=== PATIENT | female | born 1985 | race Caucasian/White ===

== ENCOUNTER 2024-03-11 17:24 | Emergency (ER) | payer BC ==
--- NOTE | 2024-03-11 17:37 | ERPHSYRPT ---
- History of Present Illness Time Seen by Provider: 03/11/24 17:37 Source: patient Exam Limitations: no limitations Physician History: This is a 39-year-old white female patient who presented to the emergency department by private vehicle and who is a patient of nurse practitioner Esequiel and pain specialist Dr. Garcia and presents with left shoulder pain after being injured. The shoulder was injured when the top portion of a tanning bed hit her in the posterior left shoulder region. It did not hit her head. It did not hit her neck although she feels some pain in the left shoulder and up into the base of her neck. She did not lose consciousness. She has a history of hypertension. She denies chest pain. She has no abdominal pain. She is not short of breath. Occurred: this afternoon Quality: aching Severity of Pain-Max: mild Severity of Pain-Current: mild Extremities Pain Location: shoulder: left (Posterior) Modifying Factors: Improves With: movement (Mildly worsens pain) Associated Symptoms: none Allergies/Adverse Reactions: No Known Drug Allergies Allergy (Verified 03/11/24 17:31) Home Medications: Metoprolol Succinate 25 mg Xl* [Toprol-Xl 25MG Tablets] 25 mg PO DAILY 03/11/24 [History] Ropinirole 2Mg [Requip 2Mg Tab] 2 mg PO HS 03/11/24 [History] Trazodone HCl 50 mg [Desyrel 50 mg] 50 mg PO HS 03/11/24 [History] Hx Tetanus, Diphtheria Vaccination/Date Given: No Hx Influenza Vaccination/Date Given: No Hx Pneumococcal Vaccination/Date Given: No Travel Risk - International Travel Have you traveled outside of the country in past 3 weeks: No - Emerging Infectious Disease Are you exhibiting symptoms associated with any current EIDs: No - Vaccine Status Hx Covid Vaccintation/Booster/Date Given: No - Review of Systems Constitutional: No Symptoms Eyes: No Symptoms Ears, Nose, & Throat: No Symptoms Respiratory: No Symptoms Cardiac: No Symptoms Abdominal/Gastrointestinal: No Symptoms Genitourinary Symptoms: No Symptoms Musculoskeletal: Injury (Left shoulder) Skin: No Symptoms Neurological: No Symptoms Psychological: No Symptoms Endocrine: No Symptoms Hematologic/Lymphatic: No Symptoms Immunological/Allergic: No Symptoms All Other Systems: Reviewed and Negative - Past Medical History Pertinent Past Medical History: Yes Neurological History: No Pertinent History ENT History: No Pertinent History Cardiac History: No Pertinent History Respiratory History: No Pertinent History Endocrine Medical History: No Pertinent History Musculoskeletal History: No Pertinent History GI Medical History: Gallbladder Disease History: No Pertinent History Psycho-Social History: No Pertinent History Female Reproductive Disorders: Menstrual Problems - Past Surgical History Past Surgical History: Yes Neuro Surgical History: No Pertinent History Cardiac: No Pertinent History Respiratory: No Pertinent History Gastrointestinal: No Pertinent History Genitourinary: No Pertinent History Musculoskeletal: No Pertinent History Female Surgical History: No Pertinent History Other Surgical History: T&A - Social History Smoking Status: Current every day smoker How long have you smoked: yrs Exposure to second hand smoke: Yes Drug Use: none Patient Lives Alone: No - Nursing Vital Signs Nursing Vital Signs: Initial Vital Signs Temperature 98.6 F 03/11/24 17:25 Pulse Rate 84 03/11/24 17:25 Respiratory Rate 17 03/11/24 17:25 Blood Pressure 151/108 03/11/24 17:25 O2 Sat by Pulse Oximetry 100 03/11/24 17:25 Pain Scale Pain Intensity 6 - Physical Exam General Appearance: no apparent distress, alert Eyes, Ears, Nose, Throat Exam: normal ENT inspection, moist mucous membranes Neck Exam: normal inspection, non-tender, supple, full range of motion Cardiovascular/Respiratory Exam: chest non-tender, no respiratory distress Abdominal Exam: non-tender Back Exam: normal inspection, normal range of motion, No CVA tenderness, No vertebral tenderness Shoulder Exam: normal inspection, no evidence of injury, normal ROM, soft tissue tenderness (Posterior shoulder on the left) Elbow/Forearm Exam: normal inspection, non-tender, no evidence of injury, normal ROM Wrist Exam: normal inspection, non-tender, no evidence of injury, normal ROM Hand Exam: normal inspection, non-tender, no evidence of injury, normal ROM Neuro/Tendon Exam: normal sensation, normal motor functions, normal tendon functions, responds to pain, no evidence tendon injury Mental Status Exam: alert, oriented x 3, cooperative Skin Exam: normal color, warm, dry SpO2 Interpretation: normal O2 Delivery: Room Air - Course Nursing assessment & vital signs reviewed: Yes Ordered Tests: Active Orders 24 hr Category Date Time Status SHOULDER Stat Exams 03/11/24 17:41 Taken - Progress Progress: unchanged Progress Note: 03/11/24 18:02 My medical decision making and the assignment of low complexity to this patient's medical issue today is based on review of the patient's past medical history, review of the patient's medication list, review of the patient drug allergy list, history present illness and physical findings on examination. The workup in this patient includes x-ray of the left shoulder. Differential diagnosis includes and not limited to contusion of the posterior left shoulder, fracture of the left shoulder, dislocation of the left shoulder 03/11/24 18:45 I interpreted the patient's preliminary left shoulder x-ray report. There is no evidence of any acute fracture or dislocation. Counseled pt/family regarding: diagnosis, need for follow-up, rad results Medical Desision Making - Diagnostic Testing Diagnostic test were ordered, analyzed, and reviewed by me: Yes Radiological Interpretation: Interpreted by me - Risk of complications The pt has a mod risk of morbidity or mortality based on: Need for prescription drug management - Departure Departure Disposition: Home Clinical Impression: Contusion of left shoulder Condition: Stable Critical Care Time: No Referrals: ZAK PHILIPPE NP [Primary Care Provider] - Follow up/PCP as directed Additional Instructions: Ice pack to tender area 3 times a day for the next 48 hours. Add Tylenol and ibuprofen to the muscle relaxant you received today. Take your other medications as prescribed. Call your primary care provider tomorrow, 03/12/2024 to make arranges for follow-up appointment to be seen in the next 5 to 7 days. Make sure that you do not take your trazodone within 2 to 3 hours of the muscle relaxant. Prescriptions: Orphenadrine Citrate 100 mg [Norflex 100 MG Tablet] 100 mg PO BID #10 tab
[2024-03-11 17:41] VITALS: BP 151/108; PULSE 84; RESP 17; TEMP 98.6; O2SAT 100
--- NOTE | 2024-03-12 08:39 | XRAY ---
Indication: Pain following injury. Comparison: December 05, 2022 3 view left shoulder again demonstrates mild AC degenerative changes and minimal degenerative changes visualized thoracic spine. No new/acute bony, articular, or soft tissue abnormalities.
== END 2024-03-11 18:55 | disposition home or self-care (01) ==
LOC: ED 17:24
DX: S40.012A Contusion of left shoulder, initial encounter (principal); W20.8XXA Other cause of strike by thrown, projected or falling object, initial encounter; I10 Essential (primary) hypertension; Z79.899 Other long term (current) drug therapy; Z72.0 Tobacco use
CPT/HCPCS: 73030; 99282

== ENCOUNTER 2024-03-31 17:24 | Emergency (ER) | payer BC ==
--- NOTE | 2024-03-31 20:03 | ERPHSYRPT ---
- History of Present Illness Time Seen by Provider: 03/31/24 19:00 Source: patient Exam Limitations: no limitations Patient Subjective Stated Complaint: Hypertension; hx of stroke last January Triage Nursing Assessment: + Physician History: The patient, with a history of stroke last year due to a clot in a major artery in the neck, presented with episodes of numbness and limpness in the left side of the body. The first episode occurred at home, with the numbness resolving spontaneously. The patient's blood pressure was monitored by her spouse during this episode and was reported to be within normal limits. The second episode occurred at work, where the patient's blood pressure was recorded as 130/107. Following this episode, the patient went home, rested, and subsequently contacted her primary care physician who advised her to present to the ER for evaluation. The patient also reported a recent bereavement, with her mother passing away within the last week. She expressed uncertainty about whether these episodes could be related to anxiety or represent transient ischemic attacks. The patient reported no current symptoms at the time of the consultation. She is on clopidogrel and aspirin as blood thinners following the stroke. She reported no new symptoms since the stroke until these recent episodes. The patient also reported constant dizziness since the stroke. The patient expressed a preference to wait for further imaging and to follow up with her neurologist, despite acknowledging the difficulty in reaching her neurologist. She also planned to contact her primary care physician the following day. The patient expressed a desire to avoid hospital admission and to ensure there was no immediate serious concern. Timing/Duration: today Severity: moderate Character of Deficits: altered sensation, LUE Deficits: no difficulties Baseline/Normal Cognition: alert oriented x 3 Current Cognition: alert oriented x 3 Associated Symptoms: slurred speech, headache, No confusion, No loss of consciousness, No nausea, No vomiting, No weakness, No insomnia, No numbness/tingling in legs/feet, No vision changes Allergies/Adverse Reactions: No Known Drug Allergies Allergy (Verified 03/31/24 17:29) Home Medications: Metoprolol Succinate 25 mg Xl* [Toprol-Xl 25MG Tablets] 25 mg PO DAILY 03/11/24 [History] Ropinirole 2Mg [Requip 2Mg Tab] 2 mg PO HS 03/11/24 [History] Trazodone HCl 50 mg [Desyrel 50 mg] 50 mg PO HS PRN 03/11/24 [History] Aspirin 81 gm Chew [Baby Aspirin 81 mg Chew] 81 mg PO DAILY 03/31/24 [History] Clopidogrel Bisulfate [Clopidogrel] 75 mg PO DAILY 03/31/24 [History] Fenofibrate 160 mg PO DAILY 03/31/24 [History] Orphenadrine Citrate 100 mg [Norflex 100 MG Tablet] 100 mg PO HS 03/31/24 [History] Hx Tetanus, Diphtheria Vaccination/Date Given: Yes Hx Influenza Vaccination/Date Given: No Hx Pneumococcal Vaccination/Date Given: No Travel Risk - International Travel Have you traveled outside of the country in past 3 weeks: No - Emerging Infectious Disease Are you exhibiting symptoms associated with any current EIDs: No - Review of Systems All Other Systems: Reviewed and Negative - Past Medical History Pertinent Past Medical History: Yes Neurological History: Stroke ENT History: No Pertinent History Cardiac History: No Pertinent History Respiratory History: No Pertinent History Endocrine Medical History: No Pertinent History Musculoskeletal History: No Pertinent History GI Medical History: Gallbladder Disease History: No Pertinent History Psycho-Social History: No Pertinent History Female Reproductive Disorders: Menstrual Problems Other Medical History: prediabetic, stroke in January 2023 - Past Surgical History Past Surgical History: Yes Neuro Surgical History: No Pertinent History Cardiac: No Pertinent History Respiratory: No Pertinent History Gastrointestinal: Cholecystectomy Genitourinary: No Pertinent History Musculoskeletal: No Pertinent History Female Surgical History: No Pertinent History Other Surgical History: T&A - Female History Hx Last Menstrual Period: 2 years Hx Now: No - Social History Smoking Status: Former smoker How long have you smoked: yrs Exposure to second hand smoke: No Drug Use: none Patient Lives Alone: No - Social Determinants of Health Will the patient participate in the screening: Declined to provide - Nursing Vital Signs Nursing Vital Signs: Initial Vital Signs Pulse Rate 82 03/31/24 18:49 Respiratory Rate 14 03/31/24 18:49 Blood Pressure 109/69 03/31/24 18:49 O2 Sat by Pulse Oximetry 97 03/31/24 18:49 Pain Scale Pain Intensity 0 - [place] Coma Scale Best Eye Response ([place]): (4) open spontaneously Best Verbal Response ([place]): (5) oriented Best Motor Response ([place]): (6) obeys commands [place] Total: 15 - Physical Exam General Appearance: no apparent distress Eye Exam: bilateral eye: normal inspection, PERRL, EOMI Ears, Nose, Throat Exam: normal ENT inspection, pharynx normal, TM abnormal (L) Neck Exam: supple, full range of motion Respiratory: airway intact, No respiratory distress Cardiovascular: capillary refill <2 sec, No edema Mental Status: alert, oriented x 3, 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 Exam: normal hearing, normal speech, PERRL, tongue midline Coordination/Gait: normal finger to nose, normal gait, normal cerebellar function Motor/Sensory: no motor deficit, no sensory deficit, no pronator drift Skin Exam: normal color, warm, dry SpO2 Interpretation: normal SpO2: 97 O2 Delivery: Room Air - Course Nursing assessment & vital signs reviewed: Yes - CT Exams Head CT Interpretation: Negative, Tele-radiologist Report Ordered Tests: Active Orders 24 hr Category Date Time Status HEAD WITHOUT CONTRAST [CT] Stat Exams 03/31/24 18:52 Taken CBC W DIFF Stat Lab 03/31/24 20:25 Completed CMP Stat Lab 03/31/24 20:25 Completed LIPID PROFILE Stat Lab 03/31/24 20:25 Completed Lab/Rad Data: Laboratory Result Diagrams 03/31/24 20:25 03/31/24 20:25 Laboratory Results 03/31/24 03/31/24 03/31/24 Range/Units 20:25 20:25 20:25 WBC 7.4 (3.98-10.04) x10^3/uL RBC 4.43 (3.93-5.22) x10^6/uL Hgb 12.7 (11.2-15.7) g/dL Hct 38.5 (34.1-44.9) % MCV 86.9 (79.4-94.8) fL MCH 28.7 (25.6-32.2) pg MCHC 33.0 (32.2-35.5) g/dL RDW 12.6 (11.7-14.4) % Plt Count 367 (182-369) x10^3/uL MPV 9.3 L (9.4-12.3) fL Gran % 61.2 (34.0-71.1) % Immature Gran % (Auto) 0.7 H (0.001-0.429) % Nucleat RBC Rel Count 0.0 (0.00-0.2) % Eos # (Auto) 0.08 (0.04-0.36) x10^3/uL Immature Gran # (Auto) 0.05 H (0.001-0.031) x10^3u/L Absolute Lymphs (auto) 2.16 (1.18-3.74) x10^3/uL Absolute Monos (auto) 0.55 (0.24-0.86) x10^3/uL Absolute Nucleated RBC 0.00 (0.00-0.012) x10^3u/L Lymphocytes % 29.2 (19.3-51.7) % Monocytes % 7.4 (4.7-12.5) % Eosinophils % 1.1 (0.7-5.8) % Basophils % 0.4 (0.1-1.2) % Absolute Granulocytes 4.53 (1.56-6.13) x10^3/uL Basophils # 0.03 (0.01-0.08) x10^3/uL Sodium 139 (135-145) mmol/L Potassium 3.8 (3.5-5.1) mmol/L Chloride 102 (98-107) mmol/L Carbon Dioxide 28 (22-30) mmol/L Anion Gap 12.3 (5-15) MEQ/L BUN 16 (7-17) mg/dL Creatinine 0.92 (0.52-1.04) mg/dL Estimated GFR 80.7 ML/MIN Glucose 95 (74-106) mg/dL Hemoglobin A1c 5.13 (4.5-6.0) % Calcium 9.8 (8.4-10.2) mg/dL Total Bilirubin 0.40 (0.2-1.3) mg/dL AST 32 (14-36) U/L ALT 31 (0-35) U/L Alkaline Phosphatase 41 (38-126) U/L Serum Total Protein 7.7 (6.3-8.2) g/dL Albumin 4.5 (3.5-5.0) g/dL Triglycerides 167 H (30-150) mg/dL Cholesterol 208 H (50-200) mg/dL LDL Cholesterol 131 H (30-100) mg/dL HDL Cholesterol 41 (40-60) mg/dL Heart Disease Risk Ratio 5.0 - Progress Progress: improved Progress Note: CT head negative. Laboratory evaluation unremarkable except for mildly elevated lipid panel. Advised patient to follow-up with PCP and neurologist with potential need for MRA in the future. 03/31/24 22:4 Medical Desision Making - Diagnostic Testing Diagnostic test were ordered, analyzed, and reviewed by me: Yes Radiological Interpretation: Interpreted by me, Reviewed by me, Teleradiologist Report - Risk of complications Low Risk: Low risk of morbidity from additional dx testing or treatment - Departure Departure Disposition: Home Clinical Impression: Arm paresthesia, left, History of CVA (cerebrovascular accident) Condition: Good Critical Care Time: No Referrals: ZAK PHILIPPE NP [Primary Care Provider] - Follow up/PCP as directed Instructions: Stroke
[2024-03-31 20:16] VITALS: RESP 20
[2024-03-31 20:41] LABS: Absolute Neutrophil Ct (ANC) 4.53 x10^3/uL (1.56-6.13); BASOPHIL % 0.4 % (0.1-1.2); Basophil (Absolute #) 0.03 x10^3/uL (0.01-0.08); Eosinophil % 1.1 % (0.7-5.8); Eosinophil (Absolute #) 0.08 x10^3/uL (0.04-0.36); Hematocrit 38.5 % (34.1-44.9); Hemoglobin 12.7 g/dL (11.2-15.7); IMMATURE GRAN # 0.05 x10^3u/L (0.001-0.031); IMMATURE GRAN % 0.7 % (0.001-0.429); Lymphocyte (Absolute #) 2.16 x10^3/uL (1.18-3.74); Lymphocytes % 29.2 % (19.3-51.7); Mean Cell Volume 86.9 fL (79.4-94.8); Mean Corpuscular Hemoglobin 28.7 pg (25.6-32.2); Mean Platelet Volume 9.3 fL (9.4-12.3); Monocyte (Absolute #) 0.55 x10^3/uL (0.24-0.86); Monocytes % 7.4 % (4.7-12.5); Neutrophil % 61.2 % (34.0-71.1); Platelet Count 367 x10^3/uL (182-369); Red Blood Count 4.43 x10^6/uL (3.93-5.22); Red Cell Distribution Width 12.6 % (11.7-14.4); White Blood Count 7.4 x10^3/uL (3.98-10.04)
[2024-03-31 20:56] LABS: ALBUMIN 4.5 g/dL (3.5-5.0); ANION GAP 12.3 MEQ/L (5-15); BILIRUBIN,TOTAL 0.4 mg/dL (0.2-1.3); Calcium 9.8 mg/dL (8.4-10.2); Creatinine 1 0.92 mg/dL (0.52-1.04); EST GLOMERULAR FILTRATION RATE 80.7 ML/MIN; Potassium 3.8 mmol/L (3.5-5.1); Total Protein 7.7 g/dL (6.3-8.2)
[2024-03-31 21:11] VITALS: BP 126/83; PULSE 80
[2024-03-31 21:31] VITALS: O2SAT 97
--- NOTE | 2024-04-01 08:36 | XRAY ---
Indication: Left-sided numbness. Multiple contiguous axial images obtained through the head without contrast. Comparison: None Normal appearing brain parenchyma, ventricles, and bony calvarium. Visualized paranasal sinuses and mastoid air cells are clear. Impression: Normal CT head without contrast exam.
== END 2024-03-31 21:40 | disposition home or self-care (01) ==
LOC: ED 17:24
DX: R20.2 Paresthesia of skin (principal); Z86.73 Personal history of transient ischemic attack (TIA), and cerebral infarction without residual deficits; R42 Dizziness and giddiness; Z79.02 Long term (current) use of antithrombotics/antiplatelets; Z79.899 Other long term (current) drug therapy
CPT/HCPCS: 36415; 70450; 80053; 80061; 83036; 83721; 85025; 99283